=== PATIENT | male | born 1995 | race Caucasian/White ===

== ENCOUNTER 2020-04-14 08:42 | Emergency (ER) | payer OTHER, BC, SELFPAY ==
[2020-04-14 08:45] VITALS: BP 136/94; PULSE 97; RESP 17; TEMP 36.7; O2SAT 98; BMI 27.1
--- NOTE | 2020-04-14 09:16 | ED.VIS.GEN ---
History of Present Illness Chief Complaint: Back Informant: Patient Narrative: Patient is a 25-year-old male with a past medical history of asthma who presents to the ED for low back pain. States that it started to hurt yesterday. Today while bending over to pick something up it became sharply worse. The pain is in the low back. Mostly on the right side. No radiation down his legs. Denies any urinary/bowel incontinence/retention. No saddle anesthesia. No fevers or chills. This did occur just prior to arrival in the ED. Patient states that sitting as well as certain movements do make the pain worse. He has had some back issues before in the past but this is the most severe that they have been. He denies any abdominal pain. He does get short of breath with the pain when it becomes severe. Denies any chest pain. No weakness or loss of sensation in any extremity. Denies any IV drug abuse. Past Medical History - Allergies and Home Meds Allergies/Adverse Reactions: Allergies No Known Allergies Allergy (Verified 04/14/20 08:43) Primary Care Physician: Blayne López MD [Primary Care Provider] - 3-5 Days if not improving Prior records reviewed: Yes Past Medical History: - - Asthma Smoking Status: Current every day smoker Alcohol: Rare Drugs: None Review of Systems All systems negative except as indicated General: Denies: Chills, Fever, Sweats Eyes: Denies: Visual changes - bilaterally, Diplopia ENT: Denies: Rhinorrhea, Sore throat Cardiovascular: Denies: Chest pain, Palpitations Respiratory: Denies: Dyspnea, Cough, Dyspnea on exertion Gastrointestinal: Denies: Abdominal pain, Nausea, Vomiting, Diarrhea Genitourinary: Denies: Dysuria, Hematuria, Frequency Musculoskeletal: Reports: Back pain. Denies: Neck pain, Extremity Pain Skin: Denies: Rash, Wounds Neurological: Denies: Headache, Weakness, Numbness Physical Exam Vital Signs/Narrative: Vital Signs Temp Pulse Resp BP Pulse Ox 04/14/20 08:45 98.1 F 97 17 136/94 H 98 Inital Vital Signs reviewed: Yes General: Well nourished, Well developed, - - Patient standing at bedside. Does not want to sit. Eyes: Perrl, EOMI ENT: Moist mucous membranes Neck: Supple, Nontender Cardiovascular: Regular rate, Regular rhythm Respiratory: No distress, CTA bilaterally Abdomen: Soft, Nontender, Nondistended Back: - - Tenderness to the right upper lumbar paraspinal musculature. There is tight musculature with muscle spasms. No overlying skin changes. Extremities: - - 5 out of 5 muscle strength in lower extremities. Neurovascularly intact. Skin: Normal color, No rash Neurological: Alert, Oriented x3, Normal Strength, Normal Sensation Psychological: Normal affect, Normal Mood Diagnostic/Tx/Re-eval - Medical Decision Making Patient presents to the ED for nontraumatic low back pain. He has no red flag symptoms for surgical spinal emergency. Upon arrival to the ED vital signs within normal limits. He has good muscle strength in lower extremities. With the history of lifting with the back pain concern for herniated disc. Will give a Elizabeth and prednisone here in the ED. Patient's pain is manageable at this point. X-ray obtained as initially did not get good pain relief with the Elizabeth and prednisone. Did not show any acute fracture or subluxation. Potentially has herniated disc. He is to follow-up with his PCP for further evaluation and management if this continues to bother him. He is given a work excuse. We will write a prescription for prednisone and Naprosyn. At this time will discharge home in stable condition. Warning signs and symptoms for which to return to the [facility] are reviewed with him. He understands and is agreeable with this plan. ED Disposition - Plan for ED Patient: Disposition: Home or Assisted Living Diagnosis: Low back pain Instructions: ED Back Pain Acute or Chronic Prescriptions: Prednisone [Deltasone] 40 mg PO DAILY #10 tab Transmission Status: Received by [facility] #[id number] Naproxen [Naprosyn] 500 mg PO BID PRN #30 tab Transmission Status: Received by [facility]acy #[id number] Referrals: Blayne López MD [Primary Care Provider] - 3-5 Days if not improving
[2020-04-14] MEDS: HYDROcodone Bitartrate/Apap 5/325 Tablet PO (09:50)
[2020-04-14] MEDS: predniSONE 20 MG Tablet 40 MG PO (09:51)
--- NOTE | 2020-04-14 10:11 | RAD_ITS ---
STUDY: X-RAY - LUMBAR SPINE REASON FOR EXAM: Male, 25 years old. lower back pain w/no radiation down legs s/p lifting TECHNIQUE: 3 view(s) of the lumbar spine were obtained. COMPARISON: None FINDINGS: Normal lumbar lordosis. There is no substantial scoliosis. There is a normal alignment of the vertebrae. Normal vertebral bodies and endplates. Normal disc space heights. The soft tissue structures are unremarkable. RAD/Lumbar Spine 2 or 3 Views IMPRESSION: Normal x-ray examination of the lumbar spine. Electronically Signed: Wilberto Tai, at 10:51 EDT Tel , Service support ,
== END 2020-04-14 11:31 | disposition home or self-care (01) ==
PROVIDERS: Emergency Provider Emergency Medicine; PCP Family Medicine
DX: M54.5 Low back pain (principal); F17.200 Nicotine dependence, unspecified, uncomplicated; J45.909 Unspecified asthma, uncomplicated
CPT/HCPCS: 72100; 96372; 99283